=== PATIENT | male | born 1960 | race Native Hawaiian/Other Pacific Islander ===

== ENCOUNTER 2021-02-02 09:52 | Outpatient (CLI) | payer OTHER ==
[~2021-02-02 09:52] MED LIST: DEXL60CA4 PO; LOSA50TA PO; ONE DAILY FOR MEN 50 PO; POTA20TA4 PO; ZIAC PO
== END 2021-02-02 20:53 | disposition home or self-care (01) ==
LOC: US 09:52
PROVIDERS: ATTEND Nurse Practitioner Family
DX: R79.89 Other specified abnormal findings of blood chemistry (principal); R63.4 Abnormal weight loss; R10.9 Unspecified abdominal pain

== ENCOUNTER 2021-02-12 08:24 | Outpatient (CLI) | payer OTHER | END 2021-02-12 19:13 | disposition home or self-care (01) | LOC: CT 08:24 | PROVIDERS: ATTEND Nurse Practitioner Family | DX: R63.4 Abnormal weight loss (principal); R79.89 Other specified abnormal findings of blood chemistry; R10.9 Unspecified abdominal pain | CPT/HCPCS: Q9963 ==

== ENCOUNTER 2021-08-17 11:06 | Observation (INO) | payer OTHER ==
[~2021-08-17] VITALS: Ht 167.6 cm; Wt 58.3 kg
[2021-08-17 11:18] VITALS: BP 175/110; TEMP 98.1
[2021-08-17 11:53] LABS: PLATELET COUNT 209 K/uL (142-355)
[2021-08-17 12:14] LABS: POTASSIUM 4.7 mmol/L (3.6-5.2)
[2021-08-17 12:56] VITALS: BP 163/98; BP 166/118
[2021-08-17 13:27] VITALS: BP 139/97
[2021-08-17 14:15] LABS: PARTIAL THROMBOPLASTIN TIME 26.3 SECONDS (24.5-33.6)
[2021-08-17 19:18] VITALS: BP 151/92; TEMP 98.2
[2021-08-17 21:22] VITALS: BP 151/92; TEMP 98.2; Ht 167.6 cm; Wt 58.3 kg
[2021-08-18] VITALS: BP 156/86; TEMP 97.8
[2021-08-18 04:00] VITALS: BP 143/80; TEMP 98.4
[2021-08-18 05:27] LABS: PLATELET COUNT 162 K/uL (142-355)
[2021-08-18 05:38] LABS: POTASSIUM 3.8 mmol/L (3.6-5.2)
[2021-08-18 08:00] VITALS: BP 155/84; TEMP 97.9
== END 2021-08-18 11:20 | disposition home or self-care (01) ==
LOC: ED 11:06 → MED/SURG 14:00
PROVIDERS: Emergency Medicine Emergency Medical Services; ADMIT Internal Medicine Endocrinology, Diabetes & Metabolism; ATTEND Internal Medicine Endocrinology, Diabetes & Metabolism
DX: I48.92 Unspecified atrial flutter (principal); I10 Essential (primary) hypertension; K21.9 Gastro-esophageal reflux disease without esophagitis; K70.30 Alcoholic cirrhosis of liver without ascites; Z72.0 Tobacco use; E83.42 Hypomagnesemia; G25.2 Other specified forms of tremor; F10.188 Alcohol abuse with other alcohol-induced disorder
CPT/HCPCS: 36415; 80048; 80053; 80307; 80320; 81000; 82140; 82150; 82550; 82948; 83690; 83735; 83880; 84484; 85027; 85610; 85730; 87635; 93005; 96360; 96361; 96365; 96366; 96374; 99220; 99284; G0378; J3475; J3490; Q9963; U0003

== ENCOUNTER 2021-10-10 10:20 | Inpatient (IN) | payer OTHER ==
[~2021-10-10] VITALS: Ht 165.1 cm; Wt 61.7 kg
[2021-10-10] VITALS (7 sets, daily range): BP systolic 144–236; BP diastolic 78–123; TEMP 97.5–97.9; Ht 165.1 cm; Wt 61.7 kg
[2021-10-10 11:42] LABS: PLATELET COUNT 213 K/uL (142-355)
[2021-10-10 12:02] LABS: POTASSIUM 4.3 mmol/L (3.6-5.2)
[2021-10-11] VITALS: BP 163/88; TEMP 97.4
[2021-10-11 04:00] VITALS: BP 164/91; TEMP 97.7
[2021-10-11 04:42] LABS: PLATELET COUNT 176 K/uL (142-355); POTASSIUM 4.4 mmol/L (3.6-5.2)
[2021-10-11] MEDS ORDERED: METO50TA27 PO (07:46)
[2021-10-11] MEDS ORDERED: DILTIAZEM HYDRO30 MG PO (07:46)
[2021-10-11] MEDS ORDERED: ELIQUIS5 MG PO (07:47)
[2021-10-11 08:26] VITALS: BP 179/99; TEMP 98
[2021-10-11 12:00] VITALS: BP 169/94; TEMP 98
[2021-10-11] MEDS ORDERED: DEXILANT60 M1 PO (15:29)
[2021-10-11 16:04] VITALS: BP 173/95; TEMP 98.8
[2021-10-11 20:00] VITALS: BP 160/96; TEMP 99.1
[2021-10-12] VITALS (9 sets, daily range): BP systolic 168–190; BP diastolic 88–96; TEMP 97.6–98.7
[2021-10-12 05:13] LABS: PLATELET COUNT 135 K/uL (142-355)
[2021-10-12 05:30] LABS: POTASSIUM 3.2 mmol/L (3.6-5.2)
[2021-10-13 05:00] LABS: PLATELET COUNT 146 K/uL (142-355)
[2021-10-13 05:55] LABS: POTASSIUM 3.2 mmol/L (3.6-5.2)
[2021-10-13 08:00] VITALS: BP 179/106; TEMP 98
== END 2021-10-13 10:15 | disposition home or self-care (01) | DRG 440 ==
LOC: ED 10:20 → MED/SURG 13:08
PROVIDERS: ADMIT Emergency Medicine Emergency Medical Services; ATTEND Internal Medicine Endocrinology, Diabetes & Metabolism
DX: K85.20 Alcohol induced acute pancreatitis without necrosis or infection (principal); F10.10 Alcohol abuse, uncomplicated; I48.91 Unspecified atrial fibrillation; I10 Essential (primary) hypertension; K21.9 Gastro-esophageal reflux disease without esophagitis; D72.818 Other decreased white blood cell count; K70.30 Alcoholic cirrhosis of liver without ascites
CPT/HCPCS: 36415; 80053; 80320; 81000; 83690; 85027; 87635; 96360; 96365; 96366; 96367; 96375; 99284; J0360; J1170; J1650; J2185; J2270; J2405; J3411; J3490; U0003

== ENCOUNTER 2021-12-17 09:23 | Emergency (ER) | payer OTHER ==
[~2021-12-17] VITALS: Ht 165.1 cm; Wt 61.7 kg
[~2021-12-17 09:23] MED LIST changes: +DEXILANT60 M1 PO; +DILTIAZEM HYDRO30 MG PO; +ELIQUIS5 MG PO; +METO50TA27 PO
[2021-12-17 09:30] VITALS: TEMP 97.3
[2021-12-17 10:02] LABS: PLATELET COUNT 165 K/uL (142-355)
[2021-12-17 10:10] LABS: POTASSIUM 3.6 mmol/L (3.6-5.2)
[2021-12-17 11:50] VITALS: BP 170/92
== END 2021-12-17 12:00 | disposition home or self-care (01) ==
LOC: ED 09:23
PROVIDERS: Emergency Medicine Emergency Medical Services
DX: K85.80 Other acute pancreatitis without necrosis or infection (principal)
CPT/HCPCS: 80053; 80307; 81000; 82150; 83690; 85027; 96360; 96375; 99284; J0360; J1885

== ENCOUNTER 2022-01-16 08:31 | Emergency (ER) | payer OTHER ==
[~2022-01-16] VITALS: Ht 165.1 cm; Wt 59.0 kg
[2022-01-16 09:11] LABS: PLATELET COUNT 223 K/uL (142-355)
[2022-01-16 09:52] LABS: POTASSIUM 3.8 mmol/L (3.6-5.2)
[2022-01-16] MEDS ORDERED: PANTOPRAZOLE 40MG TA PO ×2 (10:32→11:18)
[2022-01-16 10:46] VITALS: BP 154/97; TEMP 97.7
== END 2022-01-16 10:46 | disposition home or self-care (01) ==
LOC: ED 08:31
PROVIDERS: Emergency Medicine
DX: K29.60 Other gastritis without bleeding (principal)
CPT/HCPCS: 80053; 81000; 83690; 85027; 96360; 96374; 99284; J3490; Q9963